=== PATIENT | female | born 1975 | race Caucasian/White ===

== ENCOUNTER 2017-01-20 15:26 | Emergency (ER) | payer OTHER ==
[~2017-01-20] VITALS: Ht 165.1 cm; Wt 82.5 kg
[2017-01-20 15:31] VITALS: Ht 165.1 cm; Wt 82.5 kg
--- NOTE | 2017-01-20 16:50 | ERD ---
ER Documentation Chief Complaint Date/Time DATE: 01/20/17 TIME: 16:48 Chief Complaint Pt with L ankle pain since yesterday, after twisting leg. HPI 41-year-old female complains of left medial ankle pain and swelling that occurred yesterday while walking down the stairs. She states that she twisted, complains of achy pain, swelling was worse after she woke up this morning. She denies any weakness, paresthesias. She denies any other injuries. ROS All systems reviewed and are negative except as per history of present illness. Medications Home Meds Active Scripts Ibuprofen* (Motrin*) 600 Mg Tab, 600 MG PO Q6, #30 TAB Prov:SCAR TOLEDO PA-C 01/20/17 Allergies Allergies: Coded Allergies: No Known Drug Allergy (Verified Allergy, Unknown, 03/30/08) Physical Exam Vitals Vital Signs Date Time Temp Pulse Resp B/P Pulse Ox O2 Delivery O2 Flow Rate FiO2 01/20/17 15:31 98.4 76 18 142/79 96 Physical Exam General: Well-developed, well-nourished. The patient appears in no acute distress. HEENT: Head is normocephalic, atraumatic. No scleral icterus. Neck: Supple. Nontender. Lungs: Clear to auscultation. Normal air movement. Heart: Regular rate and rhythm. S1 and S2 are normal. No murmurs, gallops, or rubs. Abdomen: Nondistended. Extremities: Left medial ankle has swelling, she has tenderness, patient has full range of motion with left ankle flexion and dorsiflexion. There is no lateral ankle swelling or tenderness. Knee is unremarkable. Neurologic: Alert and oriented 3. No focal deficits. Normal speech and gait. Skin: Normal turgor. No rash or lesions. Results 24 hrs Current Medications Medications (Trade) Dose Ordered Sig/Aaron Route PRN Reason Start Time Stop Time Status Last Admin Dose Admin Ibuprofen (Motrin) 600 mg ONCE ONCE PO 01/20/17 17:00 01/20/17 17:01 DC 01/20/17 17:17 DIAGNOSTIC IMAGING REPORT Patient: KARIE MAYER : 1975 Age: 41 Sex: F MR #: [id number] DOS: 01/20/17 1646 Ordering MD: SCAR TOLEDO PA-C Location: [facility] Room/Bed: PROCEDURE: XR Left Ankle. CLINICAL INDICATION: Trauma. Left ankle pain. TECHNIQUE: 3 views. Frontal, lateral, and oblique. COMPARISON: None. FINDINGS: There is no fracture or dislocation. The soft tissues are normal. Articular surfaces are intact. There is a plantar calcaneal spur. There is no lytic or blastic lesion. There is no radiopaque foreign body. IMPRESSION: 1. Plantar calcaneal spur. 2. Otherwise normal images of the left ankle. RPTAT: QQ .Kareem Hanson MD, MD Date Time Electronically viewed and signed by .Kareem Hanson MD, MD on 01/20/2017 17:16 .R/ CC: SCAR TOLEDO PA-C Procedures/MDM ED course: Patient was given Motrin. Left ankle was wrapped in Nicholas bandage. Splint Assessment: Neurovascularly intact post splint placement with good fit. MDM: 41-year-old female presents with traumatic left ankle pain, most consistent with an ankle sprain. X-rays unremarkable, there is no evidence of fracture, subluxation, widening of joints, Achilles tendon rupture. Departure Diagnosis: Primary Impression: Ankle injury Condition: Good SCAR TOLEDO PA-C Jan 20, 2017 16:50
[2017-01-20] MEDS ORDERED: IBUPROFEN 600 MG TAB PO ONE (17:00)
--- NOTE | 2017-01-20 17:16 | RADRPT ---
PROCEDURE: XR Left Ankle. CLINICAL INDICATION: Trauma. Left ankle pain. TECHNIQUE: 3 views. Frontal, lateral, and oblique. COMPARISON: None. FINDINGS: There is no fracture or dislocation. The soft tissues are normal. Articular surfaces are intact. There is a plantar calcaneal spur. There is no lytic or blastic lesion. There is no radiopaque foreign body. IMPRESSION: 1. Plantar calcaneal spur. 2. Otherwise normal images of the left ankle. RPTAT: QQ .Kareem Hanson MD, MD Date Time Electronically viewed and signed by .Kareem Hanson MD, on 01/20/2017 17:16 .R/
[2017-01-20] MEDS ORDERED: IBUP-1542 PO (17:30)
== END 2017-01-20 17:58 | disposition home or self-care (01) ==
LOC: FTE 15:26
DX: S99.912A Unspecified injury of left ankle, initial encounter (principal); X50.9XXA Other and unspecified overexertion or strenuous movements or postures, initial encounter; Y92.9 Unspecified place or not applicable
CPT/HCPCS: 73610; Z7502; Z7610